=== PATIENT | male | born 1960 | race Caucasian/White ===

== ENCOUNTER 2017-05-19 12:17 | Inpatient (IN) ==
[2017-05-19] MEDS ORDERED: Albuterol 2.5 MG/3 ML NEBULIZER IH PRN (21:20)
[2017-05-19] MEDS ORDERED: NON-FORMULARY MEDICATION 1 EACH EACH (Oxycodone Hcl [Oxycodone Hcl] 20 MG) PO SCH (21:30)
[2017-05-19] MEDS ORDERED: D5% in Water 1,000 ML IVC PRN (21:35)
[2017-05-19] MEDS ORDERED: *HR* Dextrose 50 % in Water (Syg) 50 ML SYRINGE IVP PRN (21:35)
[2017-05-19] MEDS ORDERED: Dextrose Gel 15 GM PO PRN ×2 (21:35)
[2017-05-19] MEDS: rOPINIRole 1 MG TABLET PO SCH (23:01)
[2017-05-19] MEDS: OxyCODONE Immed Rel 15 MG, OxyCODONE Immed Rel 5 MG PO SCH (23:03)
[2017-05-19] MEDS: Insulin LISPRO 300 UNITS/3 ML VIAL SQ SCH (23:05)
[2017-05-20 07:26] LABS: Basophils % 0.3 %; Eosinophils # 0.5 K/mcL (0.0-0.6); Eosinophils % 6.6 %; Hematocrit 38.5 % (37.5-50.1); Hemoglobin 12.5 g/dL (12.9-16.9); Immature Granulocytes % 0.3 % (0-4); Lymphocytes # 1.8 K/mcL (0.6-4.6); Lymphocytes % 23.6 %; Mean Corpuscular HGB Conc 32.5 g/dL (31.6-35.5); Mean Corpuscular Hemoglobin 29.7 pg (28.0-33.3); Mean Corpuscular Volume 91.4 fL (83.0-100.0); Mean Platelet Volume 10.3 fL (9.4-12.4); Monocytes # 0.8 K/mcL (0.0-1.3); Monocytes % 9.9 %; Neutrophils # 4.5 K/mcL (1.6-8.9); Platelet Count 169 K/mcL (140-400); Red Blood Count 4.21 M/mcL (4.19-5.50); Segmented Neutrophils % 59.3 %
[2017-05-20 07:34] LABS: INR 1.1
[2017-05-20 07:37] LABS: Activated Partial Thrombo Time 29.8 Seconds (26.0-36.0)
[2017-05-20 07:41] LABS: BUN/Creatinine Ratio 31 (6-26); Blood Urea Nitrogen 33 mg/dL (8-26); Calcium 9.3 mg/dL (8.6-10.8); Carbon Dioxide 27 mEq/L (19-29); Chloride 104 mEq/L (98-109); Glucose 147 mg/dL (70-99); Osmolality,Calculated 298 (280-300); Potassium 4.3 mEq/L (3.5-4.5); Sodium 139 mEq/L (136-145); eGFR For African Americans > 60 (> 60); eGFR For Non-African Americans > 60 (> 60)
[2017-05-20] MEDS: Insulin LISPRO 300 UNITS/3 ML VIAL SQ SCH ×4 (08:04→22:11)
[2017-05-20] MEDS: Gabapentin 400 MG CAPSULE PO SCH ×3 (08:13→22:06)
[2017-05-20] MEDS: Furosemide 40 MG TABLET PO SCH ×2 (08:13→17:17)
[2017-05-20] MEDS: OxyCODONE Immed Rel 15 MG, OxyCODONE Immed Rel 5 MG PO SCH ×2 (08:13→14:45)
[2017-05-20] MEDS: Magnesium Oxide 400 MG TABLET PO SCH ×3 (08:13→22:06)
[2017-05-20] MEDS: Loratadine 10 MG TABLET PO SCH (08:13)
[2017-05-20] MEDS: Aspirin 325 MG TABLET PO SCH (08:13)
[2017-05-20] MEDS: Cholecalciferol (D-3) 1,000 UNIT TABLET PO SCH (08:13)
[2017-05-20] MEDS ORDERED: INSULIN DEGLUDEC SQ SCH (09:00)
[2017-05-20] MEDS: Budesonide/Formoterol 80/4.5 MDI IH SCH ×2 (10:00→22:14)
--- NOTE | 2017-05-20 14:02 | Internal Med History&Physical ---
Date of Encounter: 05/21/17 Time of Encounter: 16:05 Assessment and Plan (1) Achilles tendon rupture Current visit: No Status: Acute S/p surgical repair of Achilles tendon. Patient currently has a cast right leg and foot which remained dry and intact. Patient currently states moderate pain to right ankle which increases during mobilization. We will review patient's current pain medications and evaluate his pain needs after his physical therapy evaluation. Will continue with therapy. Qualifiers: Encounter type: subsequent encounter Laterality: right Qualified Code(s) : S86.011D - Strain of right Achilles tendon, subsequent encounter (2) Diabetes mellitus, type II Current visit: No Status: Chronic We will continue with current prescribed coverage. Will monitor his before meals and at bedtime fingersticks to evaluate any needs in change of coverage during interview patient's description past medical history shows possible poor compliance. Qualifiers: Diabetes mellitus complication status: with unspecified complications Diabetes mellitus predatory animal exterminator insulin use: without predatory animal exterminator use Qualified Code( s): E11.8 - Type 2 diabetes mellitus with unspecified complications (3) CAD (coronary artery disease) Current visit: No Status: Chronic No acute issues. Patient denies any palpitations or chest discomforts. We will continue with current medications. Qualifiers: Coronary Disease-Associated Artery/Lesion type: [place] artery [place] vs. transplanted heart: [place] heart Associated angina: without angina Qualified Code(s): I25.10 - Atherosclerotic heart disease of [place] coronary artery without angina pectoris Internal Medicine - H&P: HPI Chief complaint: deconditioning secondary to surgical repair of right achillies tendon Admitted From: Hospital to Hospital Transfer Plans for Post Hospital Care: Home History of present illness: Mr. Denson is a 56 year old male Who was admitted for deconditioning secondary to repair of right Achilles tendon rupture. Pt has history of diabetes and multiple comorbidities preoperatively and is here for PT OT evaluation for rehabilitation. Patient states he continues to have moderate pain to his right foot, which increases during mobilization. Currently he is nonweightbearing to the right foot, which remains in a cast, that is clean and dry. Possible poor compliance with his diabetes noted during questioning. Past Med Surg Social Fam HX - Past Medical History Medical history: arthritis, CHF, COPD, coronary artery disease, diabetes, GERD, hyperlipidemia, hypertension, kidney stones, renal disease, other (OPD, coronary artery disease, diabetes, GERD, hyperlipidemia, hypertension, renal disease) Psychiatric history: no psych history - Past Surgical History Surgical History: coronary bypass (CABG), other - Social History Smoking Status: Never smoker Smokeless Tobacco Status: No Alcohol use: rarely Drug use: none - Family History Father Living Status: Hx Family Cardiac Disorders: Yes Hx Family Endocrine Disorder: Yes (Diabetes) Mother Living Status: Hx Family Cardiac Disorders: Yes (Hypertension) Internal Medicine - H&P: Meds Albuterol Neb [Proventil Neb] 2.5 mg IH Q4HR PRN 10/15/15 [History] Albuterol Sulfate [Albuterol Inhaler] 1 - 2 puff IH Q4HR PRN 10/15/15 [History] Aspirin 325 mg PO DAILY 10/15/15 [History] Cholecalciferol (Vitamin D3) [Vitamin D3] 2,000 unit PO DAILY 10/15/15 [History] Docusate [Colace] 100 mg PO BID 10/15/15 [History] Escitalopram [Lexapro] 10 mg PO DAILY 10/15/15 [History] Ferrous Sulfate 325 mg PO BID 10/15/15 [History] Furosemide [Lasix] 40 mg PO BID 10/15/15 [History] Gabapentin [Neurontin] 800 mg PO TID 10/15/15 [History] Insulin ASPART [Novolog Flexpen] 14 - 18 unit SQ TIDWM 10/15/15 [History] Magnesium Oxide [Magnesium] 400 mg PO TID 10/15/15 [History] Meclizine [Antivert] 25 mg PO 1200 PRN 10/15/15 [History] Montelukast [Singulair] 10 mg PO QPM 10/15/15 [History] Omeprazole [PriLOSEC] 20 mg PO HS 10/15/15 [History] Oxycodone HCl 20 mg PO TID 10/15/15 [History] Sennosides/Docusate Sodium [Senna Plus] 2 tab PO HS 10/15/15 [History] Sodium Bicarbonate 1,300 mg PO TID 10/15/15 [History] Atorvastatin [Lipitor] 40 mg PO HS 05/01/17 [History] Budesonide/Formoterol 80/4.5 [Symbicort 80/4.5] 2 puff IH BID 05/01/17 [History ] Dapagliflozin Propanediol [Farxiga] 10 mg PO DAILY 05/01/17 [History] Insulin Degludec [Tresiba Flextouch U-200] 82 units SQ DAILY 05/01/17 [History] rOPINIRole [Requip] 1 mg PO HS 05/01/17 [History] Fluticasone Propionate Nasal [Flonase] 50 mcg NS BID PRN 05/17/17 [History] Albuterol Neb [Proventil Neb] 2.5 mg IH [id number] PRN inhsol 05/19/17 [Rx] Loratadine [Claritin] 10 mg PO DAILY tablet 05/19/17 [Rx] Tamsulosin [Flomax] 0.8 mg PO HS capsule 05/19/17 [Rx] 3 Allergy/AdvReac Type Severity Reaction Status Date / Time clopidogrel [From Plavix] Allergy Hives Verified 05/15/17 09:38 All Systems PM: A 10-system review of systems was performed and is negative for pertinent findings except as documented above in the HPI. - Constitutional Constitutional: as per HPI, weakness - EENT Eyes: no change in vision, no discharge, no pain, no photophobia Ears: no ear discharge, no ear pain, no tinnitus Nose, mouth and throat: no dysphagia, no nasal discharge, no neck pain, no sore throat - Cardiovascular Cardiovascular ROS IM: no chest pain, no diaphoresis, no dyspnea, no lightheadedness, no palpitations, no syncope - Respiratory Respiratory: no cough, no dyspnea, no wheezing, no excessive phlegm production - Gastrointestinal Gastrointestinal: no abdominal pain, no diarrhea, no hematemesis, no hematochezia, no melena, no nausea, no vomiting - Musculoskeletal Musculoskeletal ROS IM: no numbness, no tingling - Integumentary Integumentary IM: as per HPI, no rash, no unusual bruising - Neurological Neurological ROS: no confusion, no convulsions, no focal weakness, no numbness, no tingling, no tremor(s) - Endocrine Endocrine IM: as per HPI - Constitutional Vitals: Temp Pulse Resp BP Pulse Ox 98.1 F 78 16 127/71 96 05/20/17 12:00 05/20/17 12:00 05/20/17 12:00 05/20/17 12:00 05/20/17 12:00 General appearance: Present: A&O X 3, obese, answers questions appropriately - Head Head exam: Present: atraumatic, normocephalic - Eye Eye exam: Present: PERRL, conjuntiva pink, sclera anicteric Pupils: Present: PERRL - Neck Neck exam general surgery: Present: supple, trachea midline. Absent: lymphadenopathy - Respiratory Additional comments: Lungs clear throughout upper [place] with diminished breath sounds noted to the posterior bases - Cardiovascular Cardiovascular exam: Present: RRR, +S1, +S2. Absent: diastolic murmur, gallop, rubs, systolic murmur - GI/Abdominal GI/Abdominal exam: Present: normal bowel sounds, soft, no peritoneal signs. Absent: distended, tenderness - Neurological Exam Neurological exam: Present: CN II-XII intact, oriented X3, no focal deficits. Absent: pronater drift, facial droop, speech deficit - Skin Skin exam: Present: dry, intact - Other Additional findings: Patient has a cast to his right foot which remains dry and intact. Distal CV check of right toes and milligrams show good capillary refill less than 3 seconds. Patient denies any numbness or hot spots to his right foot and leg Internal Med - H&P Results - Labs CBC & Chem 7: 05/20/17 07:15 05/20/17 07:15 Labs: Short CBC 05/20/17 Range/Units 07:15 WBC 7.5 (4.3-11.1) K/mcL Hgb 12.5 L (12.9-16.9) g/dL Hct 38.5 (37.5-50.1) % Plt Count 169 (140-400) K/mcL Neutrophils # 4.5 (1.6-8.9) K/mcL BMP 05/20/17 07:15 Sodium 139 Potassium 4.3 Chloride 104 Carbon Dioxide 27 BUN 33 H Creatinine 1.08 Glucose 147 H Calcium 9.3
[2017-05-20] MEDS ORDERED: *HR* OxyCODONE Immed Rel 15 MG TABLET PO SCH (17:45)
[2017-05-20] MEDS: OXYCODONE PO SCH ×2 (18:49→22:08)
[2017-05-20] MEDS ORDERED: Insulin DETEMIR 100 UNIT/ML per UNIT SQ ONE (21:00)
[2017-05-20] MEDS: rOPINIRole 1 MG TABLET PO SCH (22:07)
[2017-05-20] MEDS: Sennosides/Docusate Sodium TABLET PO SCH (22:07)
[2017-05-20] MEDS: *HR* Enoxaparin 40 MG/0.4 ML SYRINGE SQ SCH (22:09)
[2017-05-21] MEDS ORDERED: *HR* Enoxaparin 40 MG/0.4 ML SYRINGE SQ SCH (06:00)
[2017-05-21] MEDS: Cholecalciferol (D-3) 1,000 UNIT TABLET PO SCH (08:16)
[2017-05-21] MEDS: Aspirin 325 MG TABLET PO SCH (08:16)
[2017-05-21] MEDS: OXYCODONE PO SCH ×4 (08:16→23:10)
[2017-05-21] MEDS: Furosemide 40 MG TABLET PO SCH ×2 (08:16→16:20)
[2017-05-21] MEDS: Magnesium Oxide 400 MG TABLET PO SCH ×3 (08:16→23:08)
[2017-05-21] MEDS: Loratadine 10 MG TABLET PO SCH (08:17)
[2017-05-21] MEDS: Gabapentin 400 MG CAPSULE PO SCH ×3 (08:17→23:08)
[2017-05-21] MEDS: Insulin LISPRO 300 UNITS/3 ML VIAL SQ SCH ×4 (08:18→23:07)
[2017-05-21] MEDS: Budesonide/Formoterol 80/4.5 MDI IH SCH ×2 (08:20→23:10)
[2017-05-21] MEDS ORDERED: Insulin DETEMIR 100 UNIT/ML X5UNITS SQ SCH (09:00)
--- NOTE | 2017-05-21 15:21 | Internal Med Progress Note ---
Date of Encounter: 05/21/17 Time of Encounter: 16:06 - Assessment and plan (1) Achilles tendon rupture Current Visit: No Status: Acute Assessment and plan: No acute issues. Right lower leg and foot cast remains dry and intact. Distal CV checks are normal. Pain is currently managed with oral medications. Patient continues with therapy and progressing well. We will continue with current plan of care Qualifiers: Encounter type: subsequent encounter Laterality: right Qualified Code(s) : S86.011D - Strain of right Achilles tendon, subsequent encounter (2) Diabetes mellitus, type II Current Visit: No Status: Chronic Assessment and plan: Patient continues with long-acting insulin coverage and sliding scale. Patient' s glucose on fingersticks remains greater than 200. We will increase current Levemir dose to 42 twice a day. We will continue with fingersticks with a goal of less than 150 Qualifiers: Diabetes mellitus complication status: with unspecified complications Diabetes mellitus terminal operations manager insulin use: without fpc use Qualified Code( s): E11.8 - Type 2 diabetes mellitus with unspecified complications (3) CAD (coronary artery disease) Current Visit: No Status: Chronic Assessment and plan: No acute issues. We will continue with current medications. Patient with no complaints of chest discomfort or palpitations. Qualifiers: Coronary Disease-Associated Artery/Lesion type: [place] artery [place] vs. transplanted heart: [place] heart Associated angina: without angina Qualified Code(s): I25.10 - Atherosclerotic heart disease of [place] coronary artery without angina pectoris - Subjective Interval history: Patient stated he continues to have pain to his right ankle surgical site, which increases during therapy. Patient states current pain medications are effective. Denies any other current issues or shortness breath. - Constitutional Vitals: Temp Pulse Resp BP Pulse Ox 97.7 F 92 16 136/72 94 05/21/17 07:00 05/21/17 13:53 05/21/17 13:53 05/21/17 13:53 05/21/17 13:53 General appearance: Present: A&O X 3, obese, answers questions appropriately - Head Head exam: Present: atraumatic, normocephalic - Respiratory Respiratory exam: Present: CTAB. Absent: accessory muscle use, rales, rhonchi, wheezes - Cardiovascular Cardiovascular exam: Present: RRR, +S1, +S2. Absent: diastolic murmur, gallop, rubs, systolic murmur - GI/Abdominal GI/Abdominal exam: Present: normal bowel sounds, soft, no peritoneal signs. Absent: distended, tenderness - Extremities Exam Extremities exam: Present: warm, radial pulses palpable and symmetrical. Absent : calf tenderness, cyanotic, pedal edema Additional comments: Left lower leg and foot with cast in place dry and intact. Distal CV checks show capillary refill less than 3 seconds. Patient denies any numbness toes - Neurological Exam Neurological exam: Present: CN II-XII intact, oriented X3, no focal deficits. Absent: pronater drift, facial droop, speech deficit - Skin Skin exam: Present: dry, intact Internal Medicine: Result - Labs CBC & Chem 7: 05/20/17 07:15 05/20/17 07:15 - ABG Interpretation ABG results: PT/INR, D-dimer PT 12.0 Seconds (9.4-12.1) 05/20/17 07:15 Consult Discharge Plan - Plan Referrals: Elvis Munoz MD [Primary Care Provider] -
[2017-05-21] MEDS: Insulin DETEMIR 100 UNIT/ML X5UNITS SQ SCH (23:07)
[2017-05-21] MEDS: *HR* Enoxaparin 40 MG/0.4 ML SYRINGE SQ SCH (23:08)
[2017-05-21] MEDS: rOPINIRole 1 MG TABLET PO SCH (23:09)
[2017-05-21] MEDS: Sennosides/Docusate Sodium TABLET PO SCH (23:09)
[2017-05-22] MEDS: OXYCODONE PO SCH ×4 (09:14→22:28)
[2017-05-22] MEDS: Aspirin 325 MG TABLET PO SCH (09:14)
[2017-05-22] MEDS: Magnesium Oxide 400 MG TABLET PO SCH ×3 (09:15→22:26)
[2017-05-22] MEDS: Cholecalciferol (D-3) 1,000 UNIT TABLET PO SCH (09:15)
[2017-05-22] MEDS: Gabapentin 400 MG CAPSULE PO SCH ×3 (09:15→22:26)
[2017-05-22] MEDS: Loratadine 10 MG TABLET PO SCH (09:16)
[2017-05-22] MEDS: Furosemide 40 MG TABLET PO SCH ×2 (09:16→16:47)
[2017-05-22] MEDS: Budesonide/Formoterol 80/4.5 MDI IH SCH ×2 (09:47→22:27)
[2017-05-22] MEDS: Insulin DETEMIR 100 UNIT/ML X5UNITS SQ SCH ×2 (10:41→22:26)
[2017-05-22] MEDS: Insulin LISPRO 300 UNITS/3 ML VIAL SQ SCH ×4 (10:43→22:30)
--- NOTE | 2017-05-22 11:57 | Internal Med Progress Note ---
Date of Encounter: 05/22/17 Time of Encounter: 11:55 - Assessment and plan (1) Achilles tendon rupture Current Visit: No Status: Acute Assessment and plan: No acute issues. Right lower leg and foot cast remains dry and intact. Distal CV checks are normal. Pain is currently managed with oral medications. Patient continues with therapy and progressing well. Patient currently requesting an increase in pain medication stating that his frequency does not allow continued coverage. Patient long history of opiate use. I will discuss patient's pain medication with Dr. Padilla. We will continue with current plan of care Qualifiers: Encounter type: subsequent encounter Laterality: right Qualified Code(s) : S86.011D - Strain of right Achilles tendon, subsequent encounter (2) Diabetes mellitus, type II Current Visit: No Status: Chronic Assessment and plan: Patient continues with long-acting insulin coverage and sliding scale. Patient' s glucose on fingersticks have been less than 200 overnight. Levemir dose to 42 twice a day. We will continue with fingersticks with a goal of less than 150 Qualifiers: Diabetes mellitus complication status: with unspecified complications Diabetes mellitus nursing home insulin use: without nursing home use Qualified Code( s): E11.8 - Type 2 diabetes mellitus with unspecified complications (3) CAD (coronary artery disease) Current Visit: No Status: Chronic Assessment and plan: No acute issues. We will continue with current medications. Patient with no complaints of chest discomfort or palpitations. Qualifiers: Coronary Disease-Associated Artery/Lesion type: [place] artery [place] vs. transplanted heart: [place] heart Associated angina: without angina Qualified Code(s): I25.10 - Atherosclerotic heart disease of [place] coronary artery without angina pectoris - Subjective Interval history: Patient stated he continues to have pain to his right ankle surgical site, which increases during therapy. Patient states current pain medications are effective, but the duration does not last long. Denies any other current issues or shortness breath. Patient denies any numbness or hot spots to his right foot which remains in a cast. Patient states that he feels that he is ready for discharge tomorrow. - Constitutional Vitals: Temp Pulse Resp BP Pulse Ox 98.3 F 75 18 111/60 94 05/22/17 07:16 05/22/17 07:16 05/22/17 07:16 05/22/17 07:16 12/07/17 07:16 General appearance: Present: A&O X 3, obese, answers questions appropriately - Neck Neck exam general surgery: Present: supple, trachea midline. Absent: lymphadenopathy - Respiratory Respiratory exam: Present: CTAB. Absent: accessory muscle use, rales, rhonchi, wheezes - Cardiovascular Cardiovascular exam: Present: RRR, +S1, +S2. Absent: diastolic murmur, gallop, rubs, systolic murmur - GI/Abdominal GI/Abdominal exam: Present: normal bowel sounds, soft, no peritoneal signs. Absent: distended, tenderness - Extremities Exam Extremities exam: Present: warm, radial pulses palpable and symmetrical. Absent : calf tenderness, cyanotic, pedal edema Additional comments: Right leg and foot remain in a cast which is dry and intact. Distal cardiovascular assessment shows capillary refill less than 3 seconds. No sensory deficits noted during exam. - Neurological Exam Neurological exam: Present: CN II-XII intact, oriented X3, no focal deficits. Absent: pronater drift, facial droop, speech deficit - Skin Skin exam: Present: dry, intact Internal Medicine: Result - Labs CBC & Chem 7: 05/20/17 07:15 05/20/17 07:15 - ABG Interpretation ABG results: PT/INR, D-dimer PT 12.0 Seconds (9.4-12.1) 05/20/17 07:15 Consult Discharge Plan - Plan Referrals: Elvis Munoz MD [Primary Care Provider] -
[2017-05-22] MEDS: *HR* Enoxaparin 40 MG/0.4 ML SYRINGE SQ SCH (22:26)
[2017-05-22] MEDS: rOPINIRole 1 MG TABLET PO SCH (22:27)
[2017-05-22] MEDS: Sennosides/Docusate Sodium TABLET PO SCH (22:27)
[2017-05-23 07:31] VITALS: BP 130/71
[2017-05-23] MEDS: Insulin LISPRO 300 UNITS/3 ML VIAL SQ SCH ×2 (08:22→12:45)
[2017-05-23] MEDS: Aspirin 325 MG TABLET PO SCH (08:24)
[2017-05-23] MEDS: Magnesium Oxide 400 MG TABLET PO SCH ×2 (08:25→15:41)
[2017-05-23] MEDS: Gabapentin 400 MG CAPSULE PO SCH ×2 (08:25→15:41)
[2017-05-23] MEDS: Loratadine 10 MG TABLET PO SCH (08:25)
[2017-05-23] MEDS: OXYCODONE PO SCH ×2 (08:25→12:46)
[2017-05-23] MEDS: Cholecalciferol (D-3) 1,000 UNIT TABLET PO SCH (08:25)
[2017-05-23] MEDS: Furosemide 40 MG TABLET PO SCH (08:25)
[2017-05-23] MEDS: Insulin DETEMIR 100 UNIT/ML X5UNITS SQ SCH (08:26)
[2017-05-23] MEDS: Budesonide/Formoterol 80/4.5 MDI IH SCH (08:26)
--- NOTE | 2017-05-23 13:39 | Discharge Summary ---
Date of Encounter: 05/23/17 Time of Encounter: 13:35 - Discharge Diagnosis (1) Achilles tendon rupture Priority: Primary Status: Acute Qualifiers: Encounter type: subsequent encounter Laterality: right Qualified Code(s) : S86.011D - Strain of right Achilles tendon, subsequent encounter (2) Diabetes mellitus, type II Priority: Secondary Status: Chronic Qualifiers: Diabetes mellitus complication status: with unspecified complications Diabetes mellitus terminal make up operator insulin use: without fdc use Qualified Code( s): E11.8 - Type 2 diabetes mellitus with unspecified complications (3) CAD (coronary artery disease) Priority: Secondary Status: Chronic Qualifiers: Coronary Disease-Associated Artery/Lesion type: [place] artery [place] vs. transplanted heart: [place] heart Associated angina: without angina Qualified Code(s): I25.10 - Atherosclerotic heart disease of [place] coronary artery without angina pectoris - Discharge Medications Home Medications: Albuterol Neb [Proventil Neb] 2.5 mg IH Q4HR PRN 10/15/15 [History] Albuterol Sulfate [Albuterol Inhaler] 1 - 2 puff IH Q4HR PRN 10/15/15 [History] Aspirin 325 mg PO DAILY 10/15/15 [History] Cholecalciferol (Vitamin D3) [Vitamin D3] 2,000 unit PO DAILY 10/15/15 [History] Docusate [Colace] 100 mg PO BID 10/15/15 [History] Escitalopram [Lexapro] 10 mg PO DAILY 10/15/15 [History] Ferrous Sulfate 325 mg PO BID 10/15/15 [History] Furosemide [Lasix] 40 mg PO BID 10/15/15 [History] Gabapentin [Neurontin] 800 mg PO TID 10/15/15 [History] Insulin ASPART [Novolog Flexpen] 14 - 18 unit SQ TIDWM 10/15/15 [History] Magnesium Oxide [Magnesium] 400 mg PO TID 10/15/15 [History] Meclizine [Antivert] 25 mg PO 1200 PRN 10/15/15 [History] Montelukast [Singulair] 10 mg PO QPM 10/15/15 [History] Omeprazole [PriLOSEC] 20 mg PO HS 10/15/15 [History] Oxycodone HCl 20 mg PO TID 10/15/15 [History] Sennosides/Docusate Sodium [Senna Plus] 2 tab PO HS 10/15/15 [History] Sodium Bicarbonate 1,300 mg PO TID 10/15/15 [History] Atorvastatin [Lipitor] 40 mg PO HS 05/01/17 [History] Budesonide/Formoterol 80/4.5 [Symbicort 80/4.5] 2 puff IH BID 05/01/17 [History ] Dapagliflozin Propanediol [Farxiga] 10 mg PO DAILY 05/01/17 [History] Insulin Degludec [Tresiba Flextouch U-200] 82 units SQ DAILY 05/01/17 [History] rOPINIRole [Requip] 1 mg PO HS 05/01/17 [History] Fluticasone Propionate Nasal [Flonase] 50 mcg NS BID PRN 05/17/17 [History] Albuterol Neb [Proventil Neb] 2.5 mg IH [id number] PRN inhsol 05/19/17 [Rx] Loratadine [Claritin] 10 mg PO DAILY tablet 05/19/17 [Rx] Tamsulosin [Flomax] 0.8 mg PO HS capsule 05/19/17 [Rx] Allergies/Adverse Reactions: 3 Allergy/AdvReac Type Severity Reaction Status Date / Time clopidogrel [From Plavix] Allergy Hives Verified 05/15/17 09:38 Date of admission: 05/19/17 20:20 Primary care physician: Elvis Munoz MD Consults: 05/19/17 21:36 Consult to Occupational Therapy [CONS] Routine Comment: Evaluate, develop and implement POC Reason for Consult: Eval and Treat Consult to Physical Therapy [CONS] Routine Comment: Evaluate, develop and implement POC Reason for Consult: Eval and Treat Consult to Recreational Therapy [CONS] Routine Comment: Evaluate, develop and implement POC Consult to Assistant Project Engineer [CONS] Routine Reason for SW Consult: Discharge planning Discharging clinician: Mark Padilla Anticipated date of discharge: 05/23/17 - Patient Status Disposition: Home, Self-Care Condition: Good Functional capacity at discharge: uses cane/walker Overall status at discharge: patient is progressing back to baseline - Discharge Instructions Follow Up With: Elvis Munoz MD [Primary Care Provider] - Hospital course: Mr. Denson is a 56 year old male Was admitted for physical therapy secondary to deconditioning from a right Achilles tendon repair. Patient stated physical therapy and progressed well during his stay. Pain has been controlled with oral medications. Patient's right lower leg and foot remained in a cast which is dry and intact. Patient's glucoses remained slightly elevated fingersticks greater than 200 on multiple checks. Patient's long-acting Levemir was adjusted. Time spent discussing smoking cessation with patient: 3 to 10 minutes - Time Spent with Patient Total time spent providing and/or coordinating discharge services: Less than 30 minutes - Constitutional Vitals: Temp Pulse Resp BP Pulse Ox 98.1 F 80 15 130/71 96 05/23/17 07:00 05/23/17 07:47 05/23/17 07:47 05/23/17 07:47 05/23/17 07:47 General appearance: Present: A&O X 3, obese, answers questions appropriately - Neck Neck exam general surgery: Present: supple, trachea midline. Absent: lymphadenopathy - Respiratory Respiratory exam: Present: CTAB. Absent: accessory muscle use, rales, rhonchi, wheezes - Cardiovascular Cardiovascular exam: Present: RRR, +S1, +S2. Absent: diastolic murmur, gallop, rubs, systolic murmur - GI/Abdominal GI/Abdominal exam: Present: normal bowel sounds, soft, no peritoneal signs. Absent: distended, tenderness - Extremities Exam Extremities exam: Present: warm, radial pulses palpable and symmetrical. Absent : calf tenderness, cyanotic, pedal edema Additional comments: right leg and foot remain in a cast that is clean dry and intact. - Neurological Exam Neurological exam: Present: CN II-XII intact, oriented X3, no focal deficits. Absent: pronater drift, facial droop, speech deficit - Skin Skin exam: Present: dry, intact
== END 2017-05-23 16:45 | disposition home or self-care (01) | DRG 946 ==
LOC: INPGRE 20:20
PROVIDERS: ADMIT Internal Medicine; ATTEND Internal Medicine